=== PATIENT | female | born 1975 | race Caucasian/White ===

== ENCOUNTER 2018-09-29 14:24 | Emergency (ER) | payer BC ==
--- NOTE | 2018-09-29 16:30 | ER Document Report ---
ED Medical Screen (RME) - General Chief Complaint: Mouth Injury Stated Complaint: POSSIBLE SEIZURE Time Seen by Provider: 09/29/18 16:25 Mode of Arrival: Ambulatory Information source: Patient Notes: This is a 43-year-old female with a seizure disorder that had a seizure Ismael night and she sustained a tongue bite. She has had a laceration of her tongue in the past from seizures requiring suture repair. She presents with a laceration of the tongue this time. TRAVEL OUTSIDE OF THE [place] IN LAST 30 DAYS: No - Related Data Allergies/Adverse Reactions: No Known Allergies Allergy (Verified 09/29/18 14:26)
== END 2018-09-29 19:50 | disposition left against medical advice (07) ==
LOC: ER 14:24
DX: S01.552A Open bite of oral cavity, initial encounter (principal); X58.XXXA Exposure to other specified factors, initial encounter; G40.909 Epilepsy, unspecified, not intractable, without status epilepticus; Z53.20 Procedure and treatment not carried out because of patient's decision for unspecified reasons
CPT/HCPCS: 99281